=== PATIENT | female | born 1975 | race American Indian/Alaskan Native ===

== ENCOUNTER 2024-07-27 09:05 | Inpatient (IN) | payer BC ==
[~2024-07-27 09:05] MED LIST: BENZOCAINE/MENTHOL (CHLORASEPTIC ) LOZENGE MM PRN; BENZONATATE 200 MG CAPSULE PO PRN; BISMUTH SUBSALICYLATE 524 MG/30 ML PO PRN; DICYCLOMINE HCL 10 MG CAPSULE PO PRN; IBUPROFEN 400 MG TABLET (FP) PO PRN; LOPERAMIDE HCL 2 MG CAPSULE PO PRN; MAGNESIUM HYDROX 2400MG/30ML ORAL SUSPENSION 30 ML CUP PO PRN; NALOXONE (NARCAN) HCL 4 MG/0.1 ML SPRAY NS PRN; NICOTINE POLACRILEX 4 MG GUM BUC PRN; NICOTINE POLACRILEX 4 MG LOZENGE BC PRN; POLYETHYLENE GLYCOL (HEALTHYLAX) 3350 17 GM PACKET PO PRN; guaiFENesin 600 MG TABLET.ER (FP) PO PRN
[2024-07-27 09:28] VITALS: BMI 21.4
[2024-07-27] MEDS ORDERED: methaDONE HCL 10 MG TABLET (FOR DETOX USE ONLY) PO PRN (09:57)
[2024-07-27] MEDS ORDERED: chlordiazePOXIDE HCL 25 MG CAPSULE PO PRN (09:57)
[2024-07-27] MEDS ORDERED: NICOTINE 21 MG/24 HOURS TOPICAL PATCH ONE (11:06)
[2024-07-27] MEDS ORDERED: chlordiazePOXIDE HCL 25 MG CAPSULE ONE (11:06)
[2024-07-27] MEDS ORDERED: cloNIDine HCL 0.1 MG TABLET ONE (11:07)
[2024-07-27] MEDS ORDERED: PRENATAL VITAMINS W/ FOLIC ACID TABLET (FP) PO ONE (11:08)
[2024-07-27] MEDS: NICOTINE 21 MG/24 HOURS TOPICAL PATCH TD SCH (11:10)
[2024-07-27] MEDS: chlordiazePOXIDE HCL 25 MG CAPSULE PO SCH (11:11)
[2024-07-27] MEDS: cloNIDine HCL 0.1 MG TABLET PO SCH (11:11)
[2024-07-27] MEDS: methaDONE HCL 10 MG TABLET (FOR DETOX USE ONLY) PO ONE (11:11)
[2024-07-27] MEDS: PRENATAL VITAMINS W/ FOLIC ACID TABLET (FP) PO SCH (11:11)
[2024-07-27] MEDS: IBUPROFEN 600 MG TABLET (FP) PO PRN (13:25)
[2024-07-27] MEDS: BUPRENORPHINE/NALOXONE 0.5 MG/0.125 MG FILM SL ONE (15:29)
[2024-07-27] MEDS: ACETAMINOPHEN 325 MG TABLET (FP) PO PRN (17:21)
[2024-07-27] MEDS: MELATONIN 5 MG TABLETS PO SCH (23:02)
[2024-07-27] MEDS: THIAMINE 100 MG TABLET PO SCH (23:02)
[2024-07-28] MEDS: BUPRENORPHINE/NALOXONE 0.5 MG/0.125 MG FILM SL ONE (00:23)
[2024-07-28] MEDS: BUPRENORPHINE/NALOXONE 0.5 MG/0.125 MG FILM SL SCH (10:40)
[2024-07-28 11:34] LABS: ALBUMIN 3.4 g/dl (3.4-5.0); BLOOD UREA NITROGEN 15.5 mg/dL (7-18); CALCIUM 9.7 mg/dL (8.5-10.1)
[2024-07-28 11:38] LABS: CREATININE 0.6 mg/dL (0.55-1.3)
[2024-07-28 11:39] LABS: BILIRUBIN,TOTAL 0.2 mg/dL (0.2-1); TOT PROT 7.5 g/dl (6.4-8.2)
[2024-07-28 11:48] LABS: HEMATOCRIT 40.1 % (32.4-45.2); HEMOGLOBIN 12.3 GM/dL (10.7-15.3); MCHC 30.6 g/dl (32.0-36.0); MEAN CELL VOLUME 78.3 fl (80-96); MEAN PLT VOLUME 10.9 fl (7.5-11.1); RBC 5.12 M/mm3 (3.60-5.2); WHITE BLOOD COUNT 6.7 K/mm3 (4.0-10.0)
[2024-07-28] MEDS: AMOXICILLIN 500 MG CAPSULE (FP) PO SCH (12:25)
[2024-07-28 14:26] LABS: PLATELET COUNT 191 10^3/uL (134-434)
[2024-07-28] MEDS: ACETAMINOPHEN 500 MG TABLET (FP) PO PRN (16:13)
[2024-07-28] MEDS: ACAMPROSATE CALCIUM 333 MG TABLET.DR PO SCH (21:32)
[2024-07-28] MEDS: BENZOCAINE 20 % GEL TUBE MM PRN (21:35)
[2024-07-28] MEDS: CHLORHEXIDINE GLUCONATE 0.12% 15ML CUP MM SCH (22:33)
[2024-07-28] MEDS: IBUPROFEN 400 MG TABLET (FP) PO PRN (22:34)
[2024-07-29] MEDS: chlordiazePOXIDE HCL 25 MG CAPSULE PO SCH (05:45)
[2024-07-29] MEDS: MAG HYDROX/AL HYDROX/SIMETH 30 ML UNIT-DOSE CUP PO PRN (08:55)
[2024-07-29] MEDS: methaDONE HCL 10 MG TABLET (FOR DETOX USE ONLY) PO ONE (09:48)
[2024-07-29] MEDS: BUPRENORPHINE/NALOXONE 2 MG/0.5 MG FILM PACKET SL SCH (09:49)
[2024-07-29] MEDS ORDERED: ALBUTEROL SO4 HFA INHALER IH ONE (16:31)
[2024-07-29] MEDS ORDERED: ALBUTEROL SO4 HFA INHALER IH PRN (17:19)
[2024-07-29] MEDS: hydrOXYzine PAMOATE 25 MG CAPSULE (FP) PO PRN (17:35)
[2024-07-29] MEDS: hydrOXYzine PAMOATE 25 MG CAPSULE (FP) PO ONE (19:17)
[2024-07-29] MEDS: NAPROXEN 500 MG TABLET PO ONE (19:17)
[2024-07-29] MEDS: METHOCARBAMOL 500 MG TABLET PO PRN (19:18)
[2024-07-29] MEDS: MELATONIN 5 MG TABLETS PO SCH (23:04)
[2024-07-30] MEDS ORDERED: chlordiazePOXIDE HCL 10 MG CAPSULE PO PRN
[2024-07-30] MEDS: chlordiazePOXIDE HCL 10 MG CAPSULE PO SCH (05:58)
[2024-07-30] MEDS: NAPROXEN 500 MG TABLET PO SCH (10:11)
[2024-07-30] MEDS: BUPRENORPHINE/NALOXONE 4 MG/1 MG FILM PACKET SL SCH (10:15)
[2024-07-31] MEDS: chlordiazePOXIDE HCL 10 MG CAPSULE PO SCH (05:53)
[2024-07-31] MEDS: methaDONE HCL 10 MG TABLET (FOR DETOX USE ONLY) PO ONE (10:46)
[2024-07-31] MEDS: BUPRENORPHINE/NALOXONE 8 MG/2 MG FILM PACKET SL SCH (10:47)
[2024-07-31] MEDS: ONDANSETRON *ODT* 4 MG TABLET SL PRN (10:50)
[2024-07-31 18:09] VITALS: RESP 16
[2024-08-01] MEDS: chlordiazePOXIDE HCL 10 MG CAPSULE PO ONE (05:54)
[2024-08-01 06:43] VITALS: BP 98/75; PULSE 75; TEMP 97.6
[2024-08-01] MEDS: BUPRENORPHINE/NALOXONE 8 MG/2 MG FILM PACKET SL SCH (09:15)
== END 2024-08-01 10:04 | disposition home or self-care (01) | DRG 773 ==
LOC: YASAS 09:05 → Y6N 11:41
PROVIDERS: ADMIT Allergy & Immunology; ATTEND Surgery
PROC: HZ2ZZZZ Detoxification Services for Substance Abuse Treatment (ICD-10-PCS; principal; 2024-07-27)
DX: F11.23 Opioid dependence with withdrawal (principal); F10.230 Alcohol dependence with withdrawal, uncomplicated; F14.20 Cocaine dependence, uncomplicated; F17.213 Nicotine dependence, cigarettes, with withdrawal; F19.94 Other psychoactive substance use, unspecified with psychoactive substance-induced mood disorder; F19.982 Other psychoactive substance use, unspecified with psychoactive substance-induced sleep disorder; F19.980 Other psychoactive substance use, unspecified with psychoactive substance-induced anxiety disorder; F39 Unspecified mood [affective] disorder; F25.9 Schizoaffective disorder, unspecified; F31.9 Bipolar disorder, unspecified; J43.9 Emphysema, unspecified; J45.20 Mild intermittent asthma, uncomplicated; K03.81 Cracked tooth; D64.9 Anemia, unspecified; S62.102D Fracture of unspecified carpal bone, left wrist, subsequent encounter for fracture with routine healing; X58.XXXD Exposure to other specified factors, subsequent encounter; Z62.810 Personal history of physical and sexual abuse in childhood; Z91.51 Personal history of suicidal behavior; Z56.0 Unemployment, unspecified; Z59.00 Homelessness unspecified
CPT/HCPCS: 36415; 80053; 80307; 85027; 86780; 93005; 93010; Q0162

== ENCOUNTER 2025-03-09 12:29 | Inpatient (IN) | payer BC ==
[2025-03-09 13:24] VITALS: BMI 19.5
[2025-03-09] MEDS ORDERED: LOPERAMIDE HCL 2 MG CAPSULE PO PRN (13:59)
[2025-03-09] MEDS ORDERED: BENZOCAINE/MENTHOL (CHLORASEPTIC ) LOZENGE MM PRN (13:59)
[2025-03-09] MEDS ORDERED: NALOXONE (NARCAN) HCL 4 MG/0.1 ML SPRAY NS PRN (13:59)
[2025-03-09] MEDS ORDERED: guaiFENesin 600 MG TABLET.ER (FP) PO PRN (13:59)
[2025-03-09] MEDS ORDERED: IBUPROFEN 400 MG TABLET (FP) PO PRN (13:59)
[2025-03-09] MEDS ORDERED: BENZONATATE 200 MG CAPSULE PO PRN (13:59)
[2025-03-09] MEDS: NALTREXONE HCL 50 MG TABLET PO ONE (15:10)
[2025-03-09] MEDS: ACETAMINOPHEN 325 MG TABLET (FP) PO PRN (16:50)
[2025-03-09] MEDS: hydrOXYzine PAMOATE 25 MG CAPSULE (FP) PO PRN (17:18)
[2025-03-09] MEDS: METHOCARBAMOL 500 MG TABLET PO PRN (17:46)
[2025-03-09] MEDS ORDERED: diphenhydrAMINE HCL 25 MG CAPSULE (FP) PO PRN (18:37)
[2025-03-09] MEDS: LORazepam 2 MG/ML SDV VIAL IM ONE (18:45)
[2025-03-09 20:14] LABS: EPI CELLS 13 /uL (0-25.1); HYALINE CASTS 0 /uL (0-3.1); URINE APPEARANCE CLOUDY; URINE BACTERIA 277 /uL (0-1359); URINE BILIRUBIN NEGATIVE (NEGATIVE); URINE COLOR YELLOW; URINE GLUCOSE (UA) NEGATIVE (NEGATIVE); URINE KETONE NEGATIVE (NEGATIVE); URINE LEUK ESTERASE NEGATIVE (NEGATIVE); URINE NITRITE NEGATIVE (NEGATIVE); URINE PROTEIN NEGATIVE (NEGATIVE); URINE RBC 6 /uL (0-23.9); URINE UROBILINOGEN 0.2 mg/dL (0.2-1.0); URINE WBC 21 /uL (0-25.8)
[2025-03-09] MEDS ORDERED: MIRTAZAPINE 15 MG TABLET (FP) PO SCH (22:00)
[2025-03-09] MEDS: THIAMINE 100 MG TABLET PO SCH (22:47)
[2025-03-09] MEDS: MELATONIN 5 MG TABLETS PO SCH (22:47)
[2025-03-10] MEDS: NICOTINE 14 MG/24 HOURS TOPICAL PATCH TD SCH (09:20)
[2025-03-10] MEDS: PRENATAL VITAMINS W/ FOLIC ACID TABLET (FP) PO SCH (09:20)
[2025-03-10] MEDS ORDERED: NALTREXONE HCL 50 MG TABLET PO SCH (10:00)
[2025-03-10 11:41] LABS: MCHC 29.6 g/dl (32.2-35.5); MEAN CELL VOLUME 78.4 fl (79.4-94.8); RDW 23.9 % (12.2-17.1)
[2025-03-10] MEDS: NITROFURANTOIN MONOHYD/M-CRYST 100 MG CAPSULE PO SCH (11:54)
[2025-03-10 13:02] LABS: SYPHILIS W/ RPR CONF NON-REACTIVE (NONREACTIVE)
[2025-03-10 13:18] LABS: CO2 27 mmol/L (21-32); GLUCOSE,RANDOM 117 mg/dL (74-106)
[2025-03-10 13:21] LABS: CREATININE 0.4 mg/dL (0.55-1.3); SGOT/AST 22 U/L (15-37); SGPT/ALT 24 U/L (13-61)
[2025-03-10 13:22] LABS: TOT PROT 7.2 g/dl (6.4-8.2)
[2025-03-10 13:24] LABS: ALK PHOS 59 U/L (45-117)
[2025-03-10 13:29] LABS: HCV DIAGNOSTIC IN-HOUSE W/RFLX NON-REACTIVE (NONREACTIVE)
[2025-03-11] MEDS: NICOTINE POLACRILEX 2 MG LOZENGE BC PRN (20:41)
[2025-03-11] MEDS: traZODone HCL 50 MG TABLET (FP) PO SCH (22:01)
[2025-03-12] MEDS: traZODone HCL 100 MG TABLET (FP) PO SCH (21:13)
[2025-03-13] MEDS: IBUPROFEN 600 MG TABLET (FP) PO PRN (02:10)
[2025-03-13] MEDS: MAGNESIUM HYDROX 2400MG/30ML ORAL SUSPENSION 30 ML CUP PO PRN (09:38)
[2025-03-13] MEDS: POLYETHYLENE GLYCOL (HEALTHYLAX) 3350 17 GM PACKET PO PRN (12:43)
[2025-03-15] MEDS: MAG HYDROX/AL HYDROX/SIMETH 30 ML UNIT-DOSE CUP PO PRN (20:14)
[2025-03-16] MEDS: FAMOTIDINE 20 MG TABLET PO SCH (11:52)
[2025-03-16] MEDS: DOCUSATE SODIUM 100 MG CAPSULE (FP) PO SCH (11:52)
[2025-03-16] MEDS: MIRTAZAPINE 15 MG TABLET (FP) PO SCH (21:32)
[2025-03-17] MEDS: hydrOXYzine PAMOATE 25 MG CAPSULE (FP) PO PRN (10:38)
[2025-03-17 11:44] LABS: INR 0.9 (0.83-1.09); PROTHROMBIN TIME (PATIENT) 9.9 SEC (9.7-13.0)
[2025-03-17 11:45] LABS: MCHC 28.8 g/dl (32.2-35.5); MEAN CELL VOLUME 82.3 fl (79.4-94.8); RDW 23.9 % (12.2-17.1)
[2025-03-17 13:43] LABS: CO2 32.0 mmol/L (21-32); GLUCOSE,RANDOM 97.0 mg/dL (74-106)
[2025-03-17 13:46] LABS: CREATININE 0.5 mg/dL (0.55-1.3); SGOT/AST 20.0 U/L (15-37); SGPT/ALT 25.0 U/L (13-61)
[2025-03-17 13:48] LABS: TOT PROT 6.6 g/dl (6.4-8.2)
[2025-03-17 13:49] LABS: ALK PHOS 68.0 U/L (45-117)
[2025-03-18] MEDS: OLANZapine 7.5 MG TABLET PO SCH (21:10)
[2025-03-19] MEDS: AMMONIUM LACTATE 12% LOTION 225 GM BOTTLE TP PRN (06:34)
[2025-03-20] MEDS: ALBUTEROL SO4 HFA INHALER IH PRN (21:12)
[2025-03-22] MEDS: BUDESONIDE/FORMETEROL FUMARATE 160/4.5 mcg INHALER IH SCH (21:08)
[2025-03-25] MEDS: GABAPENTIN 100 MG CAPSULE PO SCH (15:07)
[2025-03-28] MEDS: BUDESONIDE/FORMETEROL FUMARATE 160/4.5 mcg INHALER IH SCH ×2 (00:16→10:14)
[2025-04-04 06:53] VITALS: RESP 18; TEMP 96.4
[2025-04-04 12:25] VITALS: BP 105/68; PULSE 76
== END 2025-04-04 14:25 | disposition other institution (70) | DRG 772 ==
LOC: YASAS 12:29 → Y3NR 15:36 → Y5N 03-15 12:46
PROVIDERS: ADMIT Neuromusculoskeletal Medicine & OMM; ATTEND Psychiatry & Neurology Pain Medicine
PROC: HZ42ZZZ Group Counseling for Substance Abuse Treatment, Cognitive-Behavioral (ICD-10-PCS; principal; 2025-03-09)
DX: F10.20 Alcohol dependence, uncomplicated (principal); F14.20 Cocaine dependence, uncomplicated; F11.20 Opioid dependence, uncomplicated; F17.210 Nicotine dependence, cigarettes, uncomplicated; F20.9 Schizophrenia, unspecified; F31.9 Bipolar disorder, unspecified; F19.280 Other psychoactive substance dependence with psychoactive substance-induced anxiety disorder; F19.24 Other psychoactive substance dependence with psychoactive substance-induced mood disorder; F41.9 Anxiety disorder, unspecified; J43.9 Emphysema, unspecified; J45.20 Mild intermittent asthma, uncomplicated; K21.9 Gastro-esophageal reflux disease without esophagitis
CPT/HCPCS: 36415; 80053; 80305; 80307; 81003; 81025; 82140; 82652; 82962; 83735; 85027; 85610; 86780; 86803; 87811; 93005; 93010